=== PATIENT | female | born 1950 | race American Indian/Alaskan Native ===

== ENCOUNTER 2022-03-29 05:43 | Day surgery (SDC) | payer MEDICARE ==
[2022-03-29] MEDS ORDERED: SODIUM CHLORIDE 0.9% 1000 ML 1,000 ML IV SCH (06:00)
[2022-03-29] MEDS ORDERED: ceFAZolin/Water 2 GM/20 ML 2 GM/20 ML SYRINGE IV NR (06:00)
[2022-03-29] MEDS ORDERED: fentaNYL 100 MCG/2 ML INJ IV PRN (06:00)
[2022-03-29] MEDS ORDERED: MIDAZOLAM 2 MG/2 ML INJ IV NR (06:00)
[2022-03-29 06:57] LABS: Hematocrit 31.8 % (30.3-42.9); Hemoglobin 10.4 gm/dl (10.1-14.3); Mean Corpuscular HGB Conc 33 % (30-34); Mean Corpuscular Volume 83 fl (79-97); Platelet Count 281 K/mm3 (140-440); Red Blood Count 3.82 M/mm3 (3.65-5.03); Red Cell Distribution Width 18.8 % (13.2-15.2)
[2022-03-29 07:14] LABS: Calcium 9.9 mg/dL (8.4-10.2)
--- NOTE | 2022-03-29 07:19 | Anesthesia Day of Surgery ---
Anesthesia Day of Surgery - Day of Surgery Patient Examined: Yes Patient H&P Reviewed: Yes Patient is NPO: Yes
--- NOTE | 2022-03-29 07:22 | Anesthesia Consultation ---
Anesthesia Consult and Med Hx Date of service: 03/29/22 - Airway Anesthetic Teeth Evaluation: Good ROM Head & Neck: Adequate Mental/Hyoid Distance: Adequate Mallampati Class: Class II Intubation Access Assessment: Probably Good - Pulmonary Exam CTA: Yes - Cardiac Exam Cardiac Exam: RRR - Pre-Operative Health Status ASA Pre-Surgery Classification: ASA3 Proposed Anesthetic Plan: MAC Nerve Block: brachial plexus - Pulmonary Hx Smoking: Yes (FORMER SMOKER) - Cardiovascular System Hx Hypertension: Yes Hx Heart Murmur: Yes - Central Nervous System Hx Psychiatric Problems: No - Endocrine Hx Renal Disease: Yes (STAGE 5 KIDNEY DISEASE) Hx Insulin Dependent Diabetes: Yes - Other Systems Hx Alcohol Use: Yes (OCCASIONALLY) Hx Substance Use: No Hx Cancer: No
[2022-03-29] MEDS ORDERED: dexAMETHasone 4 MG/ML VIAL ONE (07:27)
[2022-03-29] MEDS ORDERED: BUPIVACAINE/PF (0.5%) 5 MG/1 ML 30 ML VIAL INFILTRATI ONE ×2 (07:35→09:54)
[2022-03-29] MEDS ORDERED: SODIUM CHLORIDE 0.9% 250ML 250 ML ONE (07:35)
[2022-03-29] MEDS ORDERED: rifAMPin 600 MG VIAL ONE (07:35)
[2022-03-29] MEDS ORDERED: HEPARIN 10,000 UNITS/10 ML VIAL ONE (07:35)
[2022-03-29] MEDS ORDERED: SODIUM CHLORIDE 0.9% 500 ML 500 ML ONE (07:35)
[2022-03-29] MEDS ORDERED: BUPIVACAINE/PF (0.25%) 2.5 MG/ML 30 ML VIAL INFILTRATI ONE (07:37)
[2022-03-29] MEDS ORDERED: propofoL 200 MG/20 ML VIAL IV ONE (08:04)
[2022-03-29] MEDS ORDERED: ePHEDrine SULFATE 50 MG/1 ML INJ ONE (08:25)
[2022-03-29] MEDS ORDERED: SODIUM CHLORIDE 0.9% IRR 1,500 ML BOTTLE IR ONE (08:38)
[2022-03-29] MEDS ORDERED: SODIUM CHLORIDE 0.9% 500 ML IVPB IRRIGATION ONE (08:38)
[2022-03-29] MEDS ORDERED: HEPARIN 10,000 UNITS/10 ML VIAL IR ONE (08:38)
[2022-03-29] MEDS ORDERED: rifAMPin 600 MG VIAL IV ONE (08:56)
[2022-03-29] MEDS ORDERED: SODIUM CHLORIDE 0.9% 250 ML IVPB IR ONE (08:56)
[2022-03-29] MEDS ORDERED: ONDANSETRON 4 MG/2 ML INJ ONE (09:06)
[2022-03-29] MEDS ORDERED: LIDOCAINE MPF (2%) 20 MG/1 ML VIAL 5 ML ONE (09:06)
--- NOTE | 2022-03-29 10:15 | Short Stay Summary ---
Short Stay Documentation Date of service: 03/29/22 Narrative H&P: See H&P - History H&P: obtained from office - Allergies and Medications Current Medications: Allergies No Known Allergies Allergy (Verified 03/26/22 17:05) Home Medications Medication Instructions Recorded Confirmed Last Taken Type AtorvaSTATin [Lipitor] 20 mg PO QHS 03/26/22 03/29/22 03/28/22 20:00 History Dulaglutide [Trulicity] 1.5 mg SQ 1XW 03/26/22 03/29/22 03/27/22 09:00 History Furosemide [Lasix TAB] 80 mg PO QDAY 03/26/22 03/29/22 03/28/22 09:00 History Losartan Potassium 100 mg PO DAILY 03/26/22 03/29/22 03/28/22 09:00 History amLODIPine [Norvasc] 10 mg PO DAILY 03/26/22 03/29/22 03/29/22 05:00 History carvediloL [Coreg] 12.5 mg PO BID 03/26/22 03/29/22 03/29/22 05:00 History Active Medications Fentanyl (Fentanyl 100 Mcg/2 Ml Inj) 100 mcg IV ONCE PRN PRN Reason: sedation for nerve block Stop: 03/29/22 23:59 Last Admin: 03/29/22 07:38 Dose: 100 mcg Sodium Chloride (Nacl 0.9% 1000 Ml) 1,000 mls @ 42 mls/hr IV DIRECT DELISA Stop: 03/29/22 23:59 Last Admin: 03/29/22 07:25 Dose: 42 mls/hr Midazolam HCl (Midazolam 2 Mg/2 Ml Inj) 2 mg IV PREOP NR Stop: 03/29/22 23:59 Last Admin: 03/29/22 07:38 Dose: 2 mg - Brief post op/procedure progress note Date of procedure: 03/29/22 Pre-op diagnosis: Chronic Renal Insufficiency Post-op diagnosis: same Procedure: Creation of Left Brachial Artery to Left Axillary Vein Arteriovenous Graft with 6 mm Bovine Artegraft Anesthesia: MIKE Surgeon: DAVID THAO Estimated blood loss: minimal Pathology: none Condition: stable - Disposition Condition at discharge: Good Short Stay Discharge Plan Activity: other (No heavy lifting with left arm for 2 weeks.) Wound: other (Okay to shower and wash the left arm incisions with soap and water but do not soak in water for 2 weeks.) Follow up with: DAVID THAO MD [Staff Physician] - 14 Days Prescriptions: HYDROcodone/APAP 5-325 [[place] 5/325] 1 each PO Q4HR PRN #30 tablet PRN Reason: Pain
--- NOTE | 2022-03-29 10:17 | Operative Report ---
Operative Report Operative Report: Date of procedure: 03/29/2022 Pre-operative diagnosis: Chronic Renal Insufficiency Post-operative diagnosis: Same Procedure(s): 1. Creation of Left Brachial Artery to Left Axillary Vein AV Graft with 6 mm Bovine Graft Artergraft Surgeon: Cooper Gonzalez MD Legal Collector: None Anesthesia: General Endotracheal Anesthesia EBL: Minimal Counts: Correct Complications: None Condition: Stable Findings: Successful Creation of Left Arm AV Graft with Palpable Thrill and Palpable Radial Pulse at the Completion of the Case. Specimen: None Indication: The patient is a 71-year-old female with a history of chronic renal sufficiency who was not yet on hemodialysis however it is anticipated that she will require hemodialysis in the near future. She is in need of permanent dialysis access to avoid placement of a permacath and was found to be a suitable candidate for creation of a left arm arteriovenous graft. She was given the risk, benefits, and alternative procedures and consented to the procedure. Description of Procedure: Prior to being transported to the operating room the patient had a regional block of the left arm performed. After the block was performed the patient was transported the operating room. Upon arriving to the operating room it was discovered that the patient's block was not adequate for pain control so the decision was made to place an LMA. Once she was adequately sedated the patient's left arm was then prepped and draped in normal sterile fashion. A longitudinal incision was made on the medial aspect of the arm just proximal to the antecubital crease and carried down to the brachial artery using sharp dissection. The brachial artery was dissected out circumferentially both proximally and distally and controlled with vessel loops. A second incision was created in longitudinal fashion on the medial aspect of the arm just distal to the axillary crease and carried down to the axillary vein using sharp dissection. Axillary vein was dissected out circumferentially and controlled with a vessel loop. I then used a Isabella-Wick tunneler to tunnel from the [facility] hial artery incision to the axillary vein incision and then pulled an 6 mm bovine through the tunnel. I infused with heparinized saline to ensure that it was not twisted or kinked. I put the brachial artery vessel loops on tension controlling the flow and then created an arteriotomy using an 11 blade and Linares scissors. I beveled the graft and created an end-to-side anastomosis using 6-0 Prolene running fashion. I clamped the graft just proximal to the anastomosis and then released the vessel loops restoring flow in the brachial artery. I placed quick clot in incision to achieve hemostasis. I cut the proximal end of the graft to the appropriate length and beveled the graft in preparation for a venous anastomosis. I controlled the axillary vein a Satinsky clamp and created a venotomy using an 11 blade and Linares scissors. I created an end to side anastomosis using a 6-0 Prolene in running fashion. Prior to completing the anastomosis I flushed the graft to ensure there was no thrombus and then completed the anastamosis. I released all clamps allowing flow into the AV graft which had an excellent thrill. I packed the wound with quick clot to achieve hemostasis. I closed both wounds in 2 layers using 3-0 Vicryl in running fashion in the deep dermal layer and 4-0 Monocryl in running fashion the subcuticular layer. I dressed both wounds with Dermabond. The patient tolera kaylie the procedure well all sponge, needle, and instrument counts were correct. The patient was taken to recovery in stable condition.
--- NOTE | 2022-03-29 12:01 | Post Anesthesia Evaluation ---
- Post Anesthesia Evaluation Patient Participated: Yes Airway Patent: Yes Stable Respiratory Function: Yes Nausea/Vomiting: No Temp > 96.8F: Yes Pain Manageable: Yes Adequeate Hydration: Yes Anesthesia Complications: No
[2022-03-29 12:38] VITALS: BP 145/71
== END 2022-03-29 11:40 | disposition home or self-care (01) ==
LOC: OR 05:43
PROVIDERS: ATTEND Surgery Vascular Surgery
DX: I12.0 Hypertensive chronic kidney disease with stage 5 chronic kidney disease or end stage renal disease (principal); N18.6 End stage renal disease; E11.22 Type 2 diabetes mellitus with diabetic chronic kidney disease; E11.319 Type 2 diabetes mellitus with unspecified diabetic retinopathy without macular edema; Z98.41 Cataract extraction status, right eye; Z98.42 Cataract extraction status, left eye; E78.00 Pure hypercholesterolemia, unspecified; Z90.49 Acquired absence of other specified parts of digestive tract; Z90.710 Acquired absence of both cervix and uterus; Z72.89 Other problems related to lifestyle; Z87.891 Personal history of nicotine dependence; Z98.890 Other specified postprocedural states; Z79.899 Other long term (current) drug therapy
CPT/HCPCS: 36415; 36830; 64415; 80048; 82962; 85027; C1768; J0690; J1100; J1644; J2250; J2405; J2704; J3010; J3490; J7030; J7040; J7050; 64450